=== PATIENT | male | born 1970 | race Caucasian/White ===

== ENCOUNTER 2024-12-17 07:47 | Day surgery (SDC) | payer OTHER, SELFPAY ==
[2024-12-17] VITALS (8 sets, daily range): BP systolic 92–121; BP diastolic 64–82; PULSE 65–72; RESP 16; TEMP 36.1–36.6; O2SAT 94–100; BMI 36.1
--- OUTSIDE RECORDS SUMMARY | 2024-12-17 08:09 | XMS RPT_ITS | CCD ---
Author Organization [facility] Care Team Providers Care Manager [employer] Name Role Phone DONNIE, [facility] Admitting Unavaila ble DONNIE, [facility] Attending Unavaila ble DONNIE, [facility] Primary Care Unavaila ble NO, DOCTOR ON Consulting Unavailable POMEREKY, [facility] Admitting Unava ilable POMERENE, [facility] Attending Unava ilable POMERENE, [facility] Primary Care Unava ilable NO, DOCTOR ON Consulting Unavailable Eusebio RODNEY, Isai Roberson Unavailable Eric MOYAN, Bean Unavailable Unavailable Javier MOYAN, Kim Mcdonald Unavailable Unavailab Nena Lovett Unavailable Unavailable Patricia MOYAN, Sena Unavailable Unavailedgardo Lomeli PA-C, Rhett Brown Unavailable [phone] [facility] Unavailable Martin Dias Attending Unavailable Paulina Schwab Primary Care Unavailable Medications Completed/Discontinued Medications Medication Drug Class(es) Dates Sig (Normalized) Sig (Original) amoxicillin 875 mg / clavulanate 125 mg oral tablet (5 sources) Penicillin-class Antibacterial Start: 09-22-2019 End: 10-02-2019 take 1 tablet by mouth twice daily Amoxicillin-Pot Clavulanate 875-125 MG Oral Tablet ; 1 (one) Tablet bid for 10 days Quantity: 20 {Tablet} Refills: 0 Ordered: 22-Sep-2019 MD Isai Kaplan Start: 22-Sep-2019 End: 02-Oct-2019 Status: Inactive Problems Active Problems Problem Classification Problem Date Documented Da te Episodic/Chronic Abdominal hernia (13 sources) Umbilical hernia; Translations: [Umbilical hernia without obstruction or gangrene] 09-22-2019 Episodic Diabetes mellitus without complication (6 sources) Diabetes mellitus; Translations: [Type 2 diabetes mellitus without complications] 10-20-2024 Chronic Comment on above: A1c = 8.9 Disorders of lipid metabolism (6 sources) Dyslipidemia; Translations: [Hyperlipidemia, unspecified] 10-20-2024 Chronic Other screening for suspected conditions (not mental disorders or infectious disease) (20 sources) Patient encounter status; Translations: [Encounter for screening for diabetes mellitus] 10-01-2024 Episodic Skin and subcutaneous tissue infections (10 sources) Abscess; Translations: [Cutaneous abscess, unspecified] 09-22-2019 Episodic Past or Other Problems Problem Classification Problem Date Documented Da te Episodic/Chronic Unclassified (5 sources) Skin Lesion - The skin lesion appeared rapidly and has been occurring for 3 weeks. It has been increasing in size. The lesion is characterized as red. The lesion is located on the face (under chin). Note for Skin lesion: Has been drainage. reviewed by [facility] 09-22-2019 Unclassified (5 sources) Hernia - The onset of the hernia has been sudden and has been occurring in a persistent pattern for 2 weeks. The course has been constant. The hernia is described as moderate. The hernia is described as being located in the umbilical area. Note for Hernia: only symptom is that lump is very tender to touch all the time. Not painful and has not changed in size. Does not worsen with cough, BM or lifting or moving heavy objects. reviewed by [facility] 12-09-2016 Unclassified (3 sources) Well adult male - The patient feels well with no complaints, has good energy level, is sleeping poorly and is sleeping well. The patient has an inappropriate diet. The patient exercises weekly. The patient sleeps 5 hours per night. Note for Well adult male: Patient voices a few concerns that he would like to discuss today. 10-21-2024 Results Test Name Value Interpretation Reference Range Facil ity Laboratory - Hematology and Cell countson 10-20-2024 HbA1c (Bld) [Mass fraction] 8.9 % Abnormal 4.6 - 7.1 % [facility] COMPREHENSIVE METABOLIC PANE [facility] 10-14-2024 Albumin [Mass/Vol] 4.2 g/dL Normal 3.6-5.1 [facility] Comment on above: Performed By: #### 7 071, [id number], 2946 #### [facility] of [address], [address] [place] [address] Rope Maker: Gordy Chapin MD Albumin/Globulin [Mass ratio] 1.6 {ratio} Normal 1.0-2.5 [facility] Comment on above: Performed By: #### 7 600, 40831, 5363 #### [facility] of [address], [address] [place] [address] Rope Maker: Gordy Chapin MD ALP [Catalytic activity/Vol] 58 U/L Normal 35-144 [facility] Comment on above: Performed By: #### 7 600, 41005, 5363 #### [facility] of [address], [address] [place] [address] Rope Maker: Gordy Chapin MD ALT [Catalytic activity/Vol] 31 U/L Normal 9-46 [facility] Comment on above: Performed By: #### 7 600, 22697, 5363 #### [facility] of [address], [address] [place] [address] Rope Maker: Gordy Chapin MD AST [Catalytic activity/Vol] 25 U/L Normal 10-35 [facility] Comment on above: Performed By: #### 7 600, 00253, 5363 #### [facility] [address], [address] [place] [address] Rope Maker: Gordy Chapin MD Bilirubin [Mass/Vol] 0.8 mg/dL Normal 0.2-1.2 [facility] Comment on above: Performed By: #### 7 600, 35749, 5363 #### [facility] of [address], [address] [place] [address] Rope Maker: Gordy Chapin MD BUN/CREATININE RATIO SEE NOTE: Normal 6-22 [facility] Comment on above: Result Comment: Not Reported: BUN and Creatinine are within reference range. Performed By: #### 7 600, 34816, 5363 #### [facility] [address], [address] [place] [address] Rope Maker: Gordy Chapin MD Calcium [Mass/Vol] 9.0 mg/dL Normal 8.6-10.3 [facility] Comment on above: Performed By: #### 7 600, 90837, 5363 #### [facility] [place] [address] Rope Maker: Gordy Chapin MD Chloride [Moles/Vol] 104 mmol/L Normal 98-110 [facility] Comment on above: Performed By: #### 7 600, , 5363 #### [facility] of [address], [address] [place] [address] Rope Maker: Gordy Chapin MD CO2 [Moles/Vol] 25 mmol/L Normal 20-32 [facility] Comment on above: Performed By: #### 7 600, , 5363 #### [facility] [place] [address] Rope Maker: Gordy Chapin MD Creatinine [Mass/Vol] 0.86 mg/dL Normal 0.70-1.30 [facility] Comment on above: Performed By: #### 7 600, , 5363 #### [facility] [place] [address] Rope Maker: Gordy Chapin MD GFR/1.73 sq M.predicted among non-blacks MDRD (S/P/Bld) [Vol rate/Area] 104 mL/min/{1.73_m2} Normal > OR = 60 [facility] Comment on above: Performed By: #### 7 600, , 5363 #### [facility] of [place] [address] Rope Maker: Gordy Chapin MD Globulin (S) [Mass/Vol] 2.6 g/dL Normal 1.9-3.7 [facility] Comment on above: Performed By: #### 7 600, , 5363 #### [facility] of [place] [address] Rope Maker: Gordy Chapin MD Glucose [Mass/Vol] 187 mg/dL High 65-99 [facility] Comment on above: Result Comment: Fasting reference interval For someone without known diabetes, a glucose value >125 mg/dL indicates that they may have diabetes and this should be confirmed with a follow-up test. Performed By: #### 7 600, 40881, 5363 #### [facility] [address], [address] [place] [address] Rope Maker: Gordy Chapin MD Potassium [Moles/Vol] 3.9 mmol/L Normal 3.5-5.3 [facility] Comment on above: Performed By: #### 7 600, 48040, 5363 #### [facility] [address], [address] [place] [address] Rope Maker: Gordy Chapin MD Protein [Mass/Vol] 6.8 g/dL Normal 6.1-8.1 [facility] Comment on above: Performed By: #### 7 600, 26658, 5363 #### [facility] [address], [address] [place] [address] Rope Maker: Gordy Chapin MD Sodium [Moles/Vol] 139 mmol/L Normal 135-146 [facility] Comment on above: Performed By: #### 7 600, 58790, 5363 #### [facility] [address], [address] [place] [address] Rope Maker: Gordy Chapin MD Urea nitrogen [Mass/Vol] 17 mg/dL Normal 7-25 [facility] Comment on above: Performed By: #### 7 600, 79326, 5363 #### [facility] of [address], [address] [place] [address] Rope Maker: Gordy Chapin MD LIPID PANEL, [facility] 09-20 Cholesterol [Mass/Vol] 177 mg/dL Normal <200 [facility] Comment on above: Performed By: #### 7 600, 52945, 5363 #### [facility] of [address], [address] [place] [address] Rope Maker: Gordy Chapin MD Cholesterol in HDL [Mass/Vol] 32 mg/dL Low > OR = 40 [facility] Comment on above: Performed By: #### 7 600, 89479, 5363 #### [facility] [address], [address] [place] [address] Rope Maker: Gordy Chapin MD Cholesterol.total/C holesterol in HDL [Mass ratio] 5.5 {ratio} High <5.0 [facility] Comment on above: Performed By: #### 7 600, 63071, 5363 #### [facility] [address], [address] [place] [address] Rope Maker: Gordy Chapin MD LDL-CHOLESTEROL Normal [facility] Comment on above: Result Comment: LDL cholesterol not calculated. Triglyceride levels greater than 400 mg/dL invalidate calculated LDL results. Reference range: <100 Desirable range <100 mg/dL for primary prevention; <70 mg/dL for patients with CHD or diabetic patients with > or = 2 CHD risk factors. LDL-C is now calculated using the Dwayne-Rubén calculation, which is a validated novel method providing better accuracy than the Friedewald equation in the estimation of LDL-C. Dwayne SS et al. RIO. 2013;310(19): 6703-5660 (http://education.Pinkding[employer]/faq/MKO308) Performed By: #### 7 600, 88031, 5363 #### [facility] [address], [address] [place] [address] Rope Maker: Gordy Chapin MD NON HDL CHOLESTEROL 145 mg/dL (calc) High <130 [facility] Comment on above: Result Comment: For patients with diabetes plus 1 major ASCVD risk factor, treating to a non-HDL-C goal of <100 mg/dL (LDL-C of <70 mg/dL) is considered a therapeutic option. Performed By: #### 7 600, 18236, 5363 #### [facility] [address], [address] [place] [address] Rope Maker: Gordy Chapin MD Triglyceride [Mass/Vol] 401 mg/dL High <150 [facility] Comment on above: Result Comment: If a non-fasting specimen was collected, consider repeat triglyceride testing on a fasting specimen if clinically indicated. Loren et al. J. of Clin. Lipidol. 2015;9:129-169. Performed By: #### 7 600, 64088, 5363 #### [facility] [address], [address] [place], [place] [id number] Rope Maker: Gordy Chapin MD PSA, TOTALon 10-14-2024 PSA, TOTAL 1.54 ng/mL Normal < OR = 4.00 [facility] Comment on above: Result Comment: The total PSA value from this assay system is standardized against the WHO standard. The test result will be approximately 20% lower when compared to the equimolar-standardized total PSA (Sunday John). Comparison of serial PSA results should be interpreted with this fact in mind. This test was performed using the Siemens chemiluminescent method. Values obtained from different assay methods cannot be used interchangeably. PSA levels, regardless of value, should not be interpreted as absolute evidence of the presence or absence of disease. Performed By: #### 7 600, 54657, 5363 #### [facility] [address], [address] [place], [place] [id number] Rope Maker: Gordy Chapin MD Laboratory - Chemistry and C hemistry - challengeon 10-13-2024 Albumin [Mass/Vol] 4.2 g/dL Normal 3.6 - 5.1 g/dL [facility], [facility].; [facility] Albumin/Globulin [Mass ratio] 1.6 {ratio} Normal 1.0 - 2.5 [facility], [facility].; [employer] ALP [Catalytic activity/Vol] 58 U/L Normal 35 - 144 U/L [facility], [facility].; [place] [employer] ALT [Catalytic activity/Vol] 31 U/L Normal 9 - 46 U/L [facility], [facility].; [place] [employer] AST [Catalytic activity/Vol] 25 U/L Normal 10 - 35 U/L [facility], [facility].; [place] [employer] Bilirubin [Mass/Vol] 0.8 mg/dL Normal 0.2 - 1.2 mg/dL [facility].; [facility], [facility]. Calcium [Mass/Vol] 9.0 mg/dL Normal 8.6 - 10. 3 mg/dL [facility].; [facility], [facility]. Chloride [Moles/Vol] 104 mmol/L Normal 98 - 110 mmol/L [facility], [facility].; [place] [employer], [facility]. Cholesterol [Mass/Vol] 177 mg/dL Normal [facility].; [facility], [facility]. Cholesterol in HDL [Mass/Vol] 32 mg/dL Abnormal [facility].; [place] [employer], [facility]. CO2 [Moles/Vol] 25 mmol/L Normal 20 - 32 mmol/L [facility].; [facility], [facility]. Creatinine [Mass/Vol] 0.86 mg/dL Normal 0.70 - 1.30 mg/dL [facility], [facility].; [place] [employer], [facility]. GFR/1.73 sq M.predicted among non-blacks MDRD (S/P/Bld) [Vol rate/Area] 104 mL/min/{1.73_m2} Normal [facility], [facility].; [place] [facility], [facility]. Glucose [Mass/Vol] 187 mg/dL Abnormal 65 - 99 mg/dL [facility].; [place] [employer], [facility]. Potassium [Moles/Vol] 3.9 mmol/L Normal 3.5 - 5.3 mmol/L [facility], [facility].; [place] [facility], [facility]. Protein [Mass/Vol] 6.8 g/dL Normal 6.1 - 8.1 g/dL [facility].; [place] [facility], [facility]. Sodium [Moles/Vol] 139 mmol/L Normal 135 - 146 mmol/L [facility], [facility].; [place] [facility], [employer]. Triglyceride [Mass/Vol] 401 mg/dL Abnormal [facility].; [place] [facility], [facility]. Urea nitrogen [Mass/Vol] 17 mg/dL Normal 7 - 25 mg/dL [facility], [facility].; [place] [employer], [facility] No Panel Informationon 10-13 BUN/CREATININE RATIO SEE NOTE: Normal 6 - [facility].; [facility], [facility]. CHOL/HDLC RATIO 5.5 Abnormal [facility].; [facility]. GLOBULIN 2.6 Normal 1.9 - 3.7 [facility]; [facility], [facility]. LDL-CHOLESTEROL SEE NOTE Normal [facility].; [facility], [facility] NON HDL CHOLESTEROL 145 Abnormal [facility].; [facility], [facility] PSA, TOTAL 1.54 ng/mL Normal [facility].; [place] [facility], [facility]. Vital Signs Date Time Vital Sign Value Performing Clinician Facility 10-20-2024 15:26-0400 Body height 180.34 cm Sena Gomez [facility].; [facility], [facility]. 10-20-2024 15:26-0400 Body mass index (BMI) [Ratio] 36.54 kg/m2 [facility].; [facility], [facility]. 10-20-2024 15:26-0400 Body surface area Derived from formula 2.37 m2 Sena Gomez [facility].; [facility], [facility]. 10-20-2024 15:26-0400 Body weight 118.84 kg Sena Gomez [facility].; [facility], [facility]. 10-20-2024 15:26-0400 Diastolic blood pressure 87 mm[Hg] Sena Gomez [facility].; [place] [facility]. Comment on above: Patient Position: Si tting; Cuff Location: Left Arm; Cuff Size: Standard 10-20-2024 15:26-0400 Heart rate 94 /min Sena Gomez [facility].; [place] [facility]. Comment on above: Pattern: Regular 10-20-2024 15:26-0400 Systolic blood pressure 144 mm[Hg] Sena Gomez [facility].; [facility], [facility]. Comment on above: Patient Position: Si tting; Cuff Location: Left Arm; Cuff Size: Standard 09-22-2019 14:02-0400 Body height 180.34 cm Kim Herrera [facility], [facility].; [facility], [employer]. 09-22-2019 14:02-0400 Body mass index (BMI) [Ratio] 41.98 kg/m2 Kim Herrera FLIGHT COORDINATOR [facility] 09-22-2019 14:02-0400 Body surface area Derived from formula 2.51 m2 Kim Herrera FLIGHT COORDINATOR [facility], [employer]. 09-22-2019 14:02-0400 Body temperature 98.2 [degF] Kim Herrera [facility], [employer]. Comment on above: Method: Tympanic 09-22-2019 14:02-0400 Body weight 136.53 kg Kim Herrera LPN [facility], [facility].; [facility], [employer]. 09-22-2019 14:02-0400 Diastolic blood pressure 95 mm[Hg] Kim Herrera LPN [facility], [employer].; [employer]. Comment on above: Patient Position: Si tting; Cuff Location: Left Arm; Cuff Size: Large 09-22-2019 14:02-0400 Heart rate 90 /min Kim Herrera LPN [facility], [employer].; [employer]. Comment on above: Pattern: Regular 09-22-2019 14:02-0400 Systolic blood pressure 166 mm[Hg] Kim Herrera [facility] [employer]. Comment on above: Patient Position: Si tting; Cuff Location: Left Arm; Cuff Size: Large 12-09-2016 15:03-0400 Body weight 144.7 kg Isai Kaplan MD Work Phone: [place] [employer], [employer].; [employer]. 12-09-2016 15:03-0400 Diastolic blood pressure 71 mm[Hg] Isai Kaplan MD Work Phone: [facility], [employer].; [employer]. Comment on above: Patient Position: Si tting; Cuff Location: Left Arm; Cuff Size: Standard 12-09-2016 15:03-0400 Heart rate 81 /min Isai Kaplan MD Work Phone: [employer]; [employer]. Comment on above: Pattern: Regular 12-09-2016 15:03-0400 Systolic blood pressure 114 mm[Hg] Isai Kaplan MD Work Phone: [employer]; [employer]. Comment on above: Patient Position: Si tting; Cuff Location: Left Arm; Cuff Size: Standard Encounters Encounter Date Encounter Type Care Provider Facility Start: [facility]-17-2024 [facility] Start: 10-29-2024 End: 10-29-2024 Orders Isai Kaplan MD Work Phone: [employer]. Start: 10-20-2024 End: 10-21-2024 Initial preventive medicine new patient 40-64yrs sIai Kaplan MD Work Phone: [employer]. Start: 10-20-2024 End: 10-21-2024 Physical examination Isai Kaplan MD Work Phone: [employer]; [employer]. Start: 10-13-2024 End: 10-14-2024 Orders Isai Kaplan MD Work Phone: [employer]. Start: 10-01-2024 End: 10-01-2024 Orders Isai Kaplan MD Work Phone: [employer]. Start: 02-02-2020 End: 02-02-2020 Patient encounter procedure [facility] Start: 09-22-2019 End: 09-22-2019 Office outpatient visit 15 minutes Isai Kaplan MD Work Phone: [employer]. Start: 04-27-2019 End: 04-27-2019 Patient encounter procedure [facility] Start: 12-09-2016 End: 12-09-2016 Office outpatient visit 15 minutes Isai Kaplan MD Work Phone: [employer]. Physical examination Rhett schaefer PA-C Work Phone: [place] [facility] [employer] Procedures Date Procedure Procedure Detail Performing Clinician Start: 10-20-2024 End: 10-20-2024 Depression screening Rhett Lomeli PA-C Work Phone: Start: 10-20-2024 End: 10-20-2024 Scr dep neg, no plan reqd Rhett varghese PA-C Work Phone: Start: 10-13-2024 End: 10-13-2024 Lab findings surveillance Sena garcia LPN Comment on above: 187 Start: 10-13-2024 End: 10-13-2024 Lipid panel Sena Gomez LPN Comment on above: TC 177, HDL 32, TRI 401, Start: 10-13-2024 End: 10-13-2024 Prostate specific antigen measurement Sena Gomez LPN Comment on above: 1.54 Plan of Treatment Date Care Activity Detail Author Start: 02-02-2025 Patient encounter procedure Medical; RTN OFFICE VISIT - 3 mo rtn [facility]. Start: 02-Feb-2025 14:00-04:00 SHERRI Lomeli Appointment Request [facility] Start: 10-20-2024 Patient encounter procedure Medical; PHYSICAL - [facility]. Start: 20-Oct-2024 15:30-04:00 SHERRI Lomeli Appointment Request [facility]. Start: 10-13-2024 Assay of prostate sp ecific antigen total [facility].; [employer]. Start: 10-13-2024 Lipid panel [facility].; [employer]. Start: 10-13-2024 Comprehensive metabo lic panel [facility].; [facility]. Start: 10-13-2024 Nursing evaluation o f patient and report Medical; Nurse visit - [facility] Start: 13-Oct-2024 08:30-04:00 PHLEBOTOMY, PHLEBOTOMY Appointment Request [facility] Payers Date Payer Category Payer Self-pay 2024 Unknown [id number] Unknown [employer] Unknown [id number] Social History Date Type Detail Facility Alcohol Use: Alcohol Use: ; O ccasional alcohol use. [employer]; [employer] Caffeine Use Caffeine Use Answer.To; [employer] Tobacco Use: Tobacco Use: ; Never smoker. [employer]; [employer] Male Answer.To; [employer] Work Phone: Never smoked tobacco [employer]; [employer] Work Phone: Summary Purpose Family History No Family History Records Found Arthritis Status:Active Comments:Mother. Diabetes Mellitus Type I Status:Active Comment s:Maternal Grandfather. Prostate Cancer Status:Active Comments:Paterna l Grandfather. Arthritis Status:Active Comments:Mother. Diabetes Mellitus Type I Status:Active Comment s:Maternal Grandfather. Prostate Cancer Status:Active Comments:Paterna l Grandfather. Arthritis Status:Active Comments:Mother. Diabetes Mellitus Type I Status:Active Comment s:Maternal Grandfather. Prostate Cancer Status:Active Comments:Paterna l Grandfather. Arthritis Status:Active Comments:Mother. Diabetes Mellitus Type I Status:Active Comment s:Maternal Grandfather. Prostate Cancer Status:Active Comments:Paterna l Grandfather. Arthritis Status:Active Comments:Mother. Diabetes Mellitus Type I Status:Active Comment s:Maternal Grandfather. Prostate Cancer Status:Active Comments:Paterna l Grandfather. Advance Directives No Advanced Directives Records FoundNo Advanced Directives Records FoundNo Advanced Directives Records Found Additional Source Comments (unrecognized sect ion and content) No Status Records FoundNo Status Records FoundNo Status Records Found INFORMATION SOURCE (unrecogn ized section and content) DATE CREATED AUTHOR [facility]02[facility] DATE CREATED AUTHOR AUTHOR'S ORGANIZ ATION 10/15/2024 [facility] DATE CREATED AUTHOR AUTHOR'S ORGANIZ ATION 12/15/2024 [facility] FOR RECORDS PERTAINING TO PATIENTS WHO ARE OR HAVE BEEN ENROLLED IN A CHEMICAL DEPENDENCY/SUBSTANCEABUSE PROGRAM, SOME INFORMATION MAY BE OMITTED. This clinical summary was aggregated from multiple sources. Caution should be exercised in using it in the provision of clinical care. This summary normalizes information from multiple sources, and as a consequence, information in this document may materially change the coding, format and clinical context of patient data. In addition, data may be omitted in some cases. CLINICAL DECISIONS SHOULD BE BASED ON THE PRIMARY CLINICAL RECORDS. [facility] [employer] [facility]. provides no warranty or guarantee of the accuracy or completeness of information in this document.
--- NOTE | 2024-12-17 08:36 | PRE.ANES_ITS ---
ASA Classification* ASA Classification ASA Classification: 2 Assessment & Plan Anesthesia* Anesthesia Assessment Anesthesia Assessment: Discussed sedation and/or anesthesia options, risks, benefits, and alternatives with patient/parents/legal guardian/POA. Questions invited. The patient/parents/legal guardian/POA seems to understand and agrees to proceed with anesthesia plan. Reviewed the physical assessment, medical history, allergy history and patient home medications list prior to surgery/procedure/anesthetic and documented any changes. Performed airway and anesthesia risk assessments. 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 When Was Last Pacemaker Check QUESTION #4 FULL TEXT: You/Your Family Experience fever (hyperthermia) with Anesthesia Last Oral Intake Last Oral intake: Last Oral Intake NPO since 00:00 12/17/24 08:11 Meds taken in AM with sips of No 12/17/24 08:11 water? Meds patient instructed to take am of surgery PONV PONV - supervisor policy change clerks: PONV - supervisor policy change clerks Female No 12/15/24 10:35 HX of Motion Sickness No 12/15/24 10:35 HX of N/V After Surgery No 12/15/24 10:35 Non-Smoker Yes 12/15/24 10:35 Duration of Surgery greater No 12/15/24 10:35 than 60 minutes Number of Risk Factors 1 12/15/24 10:35 PONV Score Low Risk 12/15/24 10:35 Height & Weight Height & Weight: Anesthesia: Height & Weight Height 6 ft 12/17/24 08:11 Weight: 120.8 kg 12/17/24 08:11 Body Mass Index (BMI) 36.1 12/17/24 08:11 Respiratory Assessment Respiratory Assessment - supervisor policy change clerks: Respiratory Tract Infection Hx - supervisor policy change clerks Hx Respiratory Tract Infection No 12/15/24 10:35 STOP Sleep Apnea STOP Sleep Apnea - supervisor policy change clerks: STOP Sleep Apnea - supervisor policy change clerks Hx Hypertension No 12/15/24 10:35 Hx Sleep Apnea No 12/15/24 10:35 CPAP BIPAP Do you snore loudly (louder Yes 12/15/24 10:35 than talking or can be heard Do you often feel tired/ No 12/15/24 10:35 fatigued/ sleepy during daytime? Has anyone observed you stop No 12/15/24 10:35 breathing during sleep? STOP Results Negative 12/15/24 10:35 QUESTION #5 FULL TEXT : Do you snore loudly (louder than talking or can be heard through closed doors)? 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 Specify any problems Hx of Preganancy in last 3 N/A 12/15/24 10:35 Months Nurse Filling Out Transfusion VCHRISTIN 12/15/24 10:35 & Questions: Date: 12/15/24 12/15/24 10:35 Time: 10:36 12/15/24 10:35 Patient unable to answer at this time (ie. confused, unrespo /Reproduction History /Reproductive History - supervisor policy change clerks: /Reproductive Hx- supervisor policy change clerks Hx Now No 12/15/24 10:35 Gestational Age (in weeks): EDC: Hx Hx Para Hx Section SAB No 12/15/24 10:35 Active Medications Active Medications: Current Medications Generic Name Dose Route Start Last Admin Trade Name Freq PRN Reason Stop Dose Admin Lactated Ringer's 1,000 mls @ 15 mls/hr 12/17/24 08:00 IV .Q48H ANGELA PFSH Medical History Wears glasses Wears contact lenses Chewing tobacco dependence History of edema Home Medications ?Medication ?Instructions ?Recorded ?Last Taken ?Type NK 12/15/24 Unknown History Allergy/AdvReac Type Severity Reaction Status Date / Time No Known Allergies Allergy Verified 12/17/24 08:10 Surgical History Hx of knee surgery Social History Smoking Status: Current every day smoker tobacco type: smokeless tobacco Review of Systems (Anesthesia) ROS Narrative System reviewed and no additional complaints, except as documented.
--- NOTE | 2024-12-17 09:16 | PCM.HP.STD ---
HPI - General General Date of Admission: 12/17/24 Date of Service: 12/17/24 Chief Complaint: Screening colonoscopy HPI Narrative ANDREA MENDES, is a 54 M who presents for screening colonoscopy. He has never had a colonoscopy. He denies any GI issues or complaints. No family history of colon polyps or colon cancers [facility] Medical History (Updated 12/17/24 @ 09:[address] Martin Dias MD) Colon cancer screening Wears glasses Wears contact lenses Chewing tobacco dependence History of edema Home Medications ?Medication ?Instructions ?Recorded ?Last Taken ?Type NK 12/15/24 Unknown History Allergy/AdvReac Type Severity Reaction Status Date / Time No Known Allergies Allergy Verified 12/17/24 08:10 Surgical History Hx of knee surgery Social History Smoking Status: Current every day smoker tobacco type: smokeless tobacco Vital Signs Vital Signs Vital Signs: 12/17/24 08:11 12/17/24 08:11 12/17/24 08:36 Temperature 97 F L 97 F L Temperature Source Temporal Pulse Rate 69 69 Respiratory Rate 16 16 Respiratory Pattern Normal Blood Pressure 121/74 H 121/74 H Blood Pressure Mean 89 Blood Pressure Source Monitor Blood Pressure Position Semi-Fowlers Blood Pressure Location Left Arm Pulse Ox 100 100 Oxygen Delivery Method Room Air Weight Weight: 266 lb 5.094 oz Body Mass Index (BMI) 36.1 Physical Exam Const alert, oriented x3 and no apparent distress Assessment & Plan Assessment/Plan (1) Colon cancer screening: PLAN: Plan The patient is a 54-year-old male in need of a screening colonoscopy. He has never had a previous colonoscopy. We discussed the details of the planned procedure including risk benefits and alternatives. He wishes to proceed. This will begin momentarily Charges/Coding Visit Charges Inpatient E&M: 22316 Init Hosp L2
[2024-12-17] MEDS: Lactated Ringers 500 ML IV (09:22)
--- NOTE | 2024-12-17 09:49 | PCM.POST.ANE ---
Anesthesia: Postop Eval I Current Vital Signs Temperature: 97 F Pulse Rate: 67 Blood Pressure: 92/70 Respiratory Rate: 16 Pulse Ox: 97 Oxygen Delivery Method: Room Air Assessment Airway patent: Yes Spontaneous unlabored respirations: Yes Mental status: Awake and Calm nausea: No Vomiting: No Anesthesia Complication: No Fluid Hydration Crystalloid volume administer (ml): 500 Total IV fluid infused: 500 Progress Note Anesthesia document: Postop Eval 1 completed: Yes
--- NOTE | 2024-12-17 10:05 | OP.PROVAT_ITS ---
12/17/2024 Campbell Asher Re : Colonoscopy procedure for Jhon Carmichael Dear [employer] This procedure was performed on Tuesday, December 17, 2024. My impressions and recommendations are as follows: Impressions : - Hemorrhoids. - The examination was otherwise normal on direct and retroflexion views. - No specimens collected. Recommendations : - Discharge patient to home (ambulatory). - High fiber diet. - Repeat colonoscopy in 10 years for screening purposes. - Return to my office PRN. - Continue present medications. My findings are described in the full procedure note, which is enclosed. If I can be of further assistance, please feel free to contact me at . Sincerely, Martin Dias MD 12/17/2024 10:04:53 AM This report has been signed electronically.
--- NOTE | 2024-12-17 10:05 | OP.COLON_ITS ---
Patient Name: Jhon Carmichael Procedure Date: 12/17/2024 9:03 AM Date of : 1970 Age: 54 Procedure: Colonoscopy Indications: Screening for colorectal malignant neoplasm Providers: Martin Dias MD Referring MD: Campbell Asher Medicines: Monitored Anesthesia Care Patient Profile: Refer to note in patient chart for documentation of history and physical. Last Colonoscopy: none. The patient's first colonoscopy is today. Complications: No immediate complications. Estimated blood loss: None. Procedure: Pre-Anesthesia Assessment: - Prior to the procedure, a History and Physical was performed, and patient medications and allergies were reviewed. The patient's tolerance of previous anesthesia was also reviewed. The risks and benefits of the procedure and the sedation options and risks were discussed with the patient. All questions were answered, and informed consent was obtained. Prior Anticoagulants: The patient has taken no anticoagulant or antiplatelet agents. ASA Grade Assessment: II - A patient with mild systemic disease. After reviewing the risks and benefits, the patient was deemed in satisfactory condition to undergo the procedure. After I obtained informed consent, the scope was passed under direct vision. Throughout the procedure, the patient's blood pressure, pulse, and oxygen saturations were monitored continuously. The colonoscope was introduced through the anus and advanced to the cecum, identified by the appendiceal orifice, ileocecal valve and palpation. The ileocecal valve, appendiceal orifice, and rectum were photographed. The entire colon was well visualized. The colonoscopy was performed without difficulty. The patient tolerated the procedure well. Moderate Sedation: See the other procedure note for documentation of moderate sedation with intraservice time. Scope In: 9:27:53 AM Scope Withdrawal Time 0 hours 12 minutes 19 seconds Scope Out: 9:47:02 AM Total Procedure Duration Time 0 hours 19 minutes 9 seconds Findings: The perianal and digital rectal examinations were normal. Hemorrhoids were found during retroflexion. The hemorrhoids were moderate. The exam was otherwise without abnormality on direct and retroflexion views. Impression: - Hemorrhoids. - The examination was otherwise normal on direct and retroflexion views. - No specimens collected. Recommendation: - Discharge patient to home (ambulatory). - High fiber diet. - Repeat colonoscopy in 10 years for screening purposes. - Return to my office PRN. - Continue present medications. Procedure Code(s): --- Professional --- 16636, Colonoscopy, flexible; diagnostic, including collection of specimen(s) by brushing or washing, when performed (separate procedure) Diagnosis Code(s): --- Professional --- K64.9, Unspecified hemorrhoids Z12.11, Encounter for screening for malignant neoplasm of colon CPT copyright 2021 [employer]. All rights reserved. The codes documented in this report are preliminary and upon studio hand review may be revised to meet current compliance requirements. Martin Dias MD 12/17/2024 10:04:53 AM This report has been signed electronically. Number of Addenda: 0 Note Initiated On: 12/17/2024 9:03 AM
--- NOTE | 2024-12-17 10:24 | POSTOPAN2_ITS ---
Anesthesia Postop Eval I Sum Postop Eval Completion status Anesthesia document: Postop Eval 1 completed: Yes Anesthesia Postop Eval I Summary Anesthesia Postop Eval I Summary: Anesthesia Postop Eval I: Assessment Summary Airway patent Yes 12/17/24 09:49 [email or web address] [email or web address] Spontaneous unlabored Yes 12/17/24 09:49 FORESTRY [email or web address] [email or web address].CSIR respirations Mental status Awake,Calm 12/17/24 09:49 [email or web address] [email or web address] AIDE.CSIR nausea No 12/17/24 09:49 FORESTRY FIRE AIDE.CSIR Vomiting No 12/17/24 09:49 FORESTRY FIRE AIDE.CSIR Anesthesia Postop Eval I: Fluid Summary Crystalloid volume administer 500 12/17/24 09:49 FORESTRY FIRE AIDE.CSIR (ml) Colloids volume administered ( ml) Blood Product volume administered (ml) Total IV fluid infused 500 12/17/24 09:49 FORESTRY FIRE AIDE.CSIR Anesthesia Postop Eval I: Summary Notes Anesthesia Complication No 12/17/24 09:49 FORESTRY FIRE AIDE.CSIR Anesthesia Complication Comment: Post-operative progress note Anesthesia: Postop Eval II Evaluation Mental status: Awake Pain Level: 0 nausea: No Vomiting: No
--- NOTE | 2024-12-17 10:24 | PCM.POSTANE2 ---
Anesthesia Postop Eval I Sum Postop Eval Completion status Anesthesia document: Postop Eval 1 completed: Yes Anesthesia Postop Eval I Summary Anesthesia Postop Eval I Summary: Anesthesia Postop Eval I: Assessment Summary Airway patent Yes 12/17/24 09:49 REGISTERED [email or web address].[email or web address] Spontaneous unlabored Yes 12/17/24 09:49 REGISTERED APPRAISER.CSIR respirations Mental status Awake,Calm 12/17/24 09:49 REGISTERED [email or web address].CSIR nausea No 12/17/24 09:49 REGISTERED APPRAISER.CSIR Vomiting No 12/17/24 09:49 REGISTERED APPRAISER.CSIR Anesthesia Postop Eval I: Fluid Summary Crystalloid volume administer 500 12/17/24 09:49 REGISTERED APPRAISER.CSIR (ml) Colloids volume administered ( ml) Blood Product volume administered (ml) Total IV fluid infused 500 12/17/24 09:49 REGISTERED APPRAISER.CSIR Anesthesia Postop Eval I: Summary Notes Anesthesia Complication No 12/17/24 09:49 REGISTERED [email or web address].CSIR Anesthesia Complication Comment: Post-operative progress note Anesthesia: Postop Eval II Evaluation Mental status: Awake Pain Level: 0 nausea: No Vomiting: No
== END 2024-12-17 10:27 | disposition home or self-care (01) ==
LOC: EN 07:48 → AC 07:49
PROVIDERS: PCP Physician Assistant; Referring Provider Physician Assistant; Visit Provider Surgery
PROC: 0DJD8ZZ Inspection of Lower Intestinal Tract, Via Natural or Artificial Opening Endoscopic (ICD-10-PCS; CPT 45378; principal; 2024-12-17 08:55)
DX: Z12.11 Encounter for screening for malignant neoplasm of colon (principal); K64.9 Unspecified hemorrhoids; F17.220 Nicotine dependence, chewing tobacco, uncomplicated
CPT/HCPCS: 45378; J2405